=== PATIENT | male | born 1965 | race Caucasian/White ===

== ENCOUNTER 2017-06-17 16:31 | Observation (INO) | payer OTHER ==
[~2017-06-17] VITALS: Ht 165.1 cm; Wt 79.4 kg
[2017-06-17] MEDS ORDERED: SODIUM CHLORIDE 0.9% 1000ML 1,000 ML IV STA (16:59)
[2017-06-17] MEDS ORDERED: HYDROCODONE/APAP 10MG-325MG TAB PO ONE (17:00)
--- NOTE | 2017-06-17 17:59 | Diagnostic Imaging Report ---
Exam: Head CT without contrast History: Weakness, left-sided facial droop. Per Dr. Saba, patient is outside of window for intravenous thrombolytic therapy. Comparison studies: None Technique: Axial images were obtained from the skull base to the vertex. Coronal and sagittal images reconstructed from the axial data. Intravenous contrast: None Findings: Scalp: No abnormalities. Bones: No fractures, blastic or lytic lesions. Brain sulci: Appropriate for age. Ventricles: Normal in size and configuration. No hydrocephalus. Extra-axial spaces: No masses, no fluid collection. Subtle hyperdensity within a right perisylvian arterial branch (series 2, image 11). Parenchyma: No abnormal densities. No masses, acute hemorrhage, acute or chronic vascular insults. Sellar/suprasellar region: No abnormalities. Craniocervical junction: Patent foramen magnum. No Chiari one malformation. Incidental findings: Atherosclerotic calcifications in the carotid siphons and right intradural vertebral artery. IMPRESSION: 1. No mass, acute hemorrhage or acute cortical vascular insults. 2. Subtle hyperdensity within a right perisylvian M2 MCA branch may be artifactual. Moreover cannot exclude acute right M2 MCA thrombus in the context of "left facial droop". Recommend brain MRI and intracranial MRA to further evaluate. Findings recommendations were discussed with Dr. Saba at 5:50 PM on 2016. Signed by: Dr. Darrick Hilton M.D. on 06/17/2017 5:55 PM
--- NOTE | 2017-06-17 18:09 | Diagnostic Imaging Report ---
PROCEDURE: A single AP view of the chest. COMPARISON: None. INDICATIONS: WEAKNESS FINDINGS: Lines/tubes: None. Lungs: The lungs are well inflated. Linear subsegmental atelectasis likely located in the lingula. There is no evidence of consolidation or pulmonary edema. Pleura: There is no pleural effusion or pneumothorax. Heart and mediastinum: The heart and the mediastinum are unremarkable. Bones: No acute bony abnormality. IMPRESSION: 1. No acute cardiopulmonary abnormalities. Jameel Conrad M.D. Dictated by: Jameel Conrad M.D. on 06/17/2017 at 18:17 Electronically approved by: Jameel Conrad M.D. on 06/17/2017 at 18:17
[2017-06-17 18:11] LABS: BILIRUBIN,URINE NEGATIVE (NEGATIVE); CLARITY,URINE CLEAR (CLEAR); COLOR,URINE YELLOW (YELLOW); KETONES,URINE NEGATIVE (NEGATIVE); LEUKOCYTE ESTERASE ,URINE NEGATIVE (NEGATIVE); NITRITE,URINE NEGATIVE (NEGATIVE); PROTEIN,URINE DIPSTICK NEGATIVE (NEGATIVE); URINE UROBILINOGEN 0.2 mg/dL (0.2 - 1)
[2017-06-17] MEDS ORDERED: SODIUM CHLORIDE FLUSH 10 ML SYR INJ PRN (18:15)
[2017-06-17] MEDS ORDERED: ASPIRIN 325 MG TAB PO ONE (18:15)
[2017-06-17 18:32] LABS: BACTERIA,URINE RARE /HPF; RBC,URINE 0-5 /HPF (0-5); WBC,URINE (MAN) 0-5 /HPF (0-5)
[2017-06-17 18:33] LABS: EPITHELIAL CELLS,URINE RARE /LPF; MUCUS,URINE FEW (RARE)
[2017-06-17 19:12] LABS: BASOPHILS # (AUTO) 0.1 (0.0-0.1); BASOPHILS % 0.6 % (0.0-1.0); EOSINOPHILS # (AUTO) 0.2 (0.0-0.4); EOSINOPHILS % 2.1 % (0.0-6.0); HEMATOCRIT 44.3 % (38.2-49.6); HEMOGLOBIN 15.3 g/dL (14.0-18.0); LYMPHOCYTES # (AUTO) 2.6 (1.0-3.2); LYMPHOCYTES % 32.5 % (18.0-39.1); MEAN CORPUSCULAR HEMOGLOBIN 32.7 pg (28-32); MEAN CORPUSCULAR HGB CONC 34.5 g/dL (31-35); MEAN CORPUSCULAR VOLUME 94.7 fL (81-99); MONOCYTES # (AUTO) 0.6 (0.2-0.8); MONOCYTES % 7.9 % (4.4-11.3); NEUTROPHILS # (AUTO) 4.6 (2.1-6.9); NEUTROPHILS % 56.5 % (38.7-80.0); PLATELET COUNT 340 x10e3/uL (140-360); RED BLOOD COUNT 4.68 x10e6/uL (4.3-5.7); RED CELL DISTRIBUTION WIDTH 12.5 % (11.7-14.4)
[2017-06-17 19:22] LABS: INR 0.84; PARTIAL THROMBOPLASTIN TIME 29.9 seconds (23.8-35.5); PROTHROMBIN TIME 11.9 seconds (11.9-14.5)
[2017-06-17 19:29] LABS: ALANINE AMINOTRANSFERASE 20 IU/L (0-55); ALBUMIN 3.7 g/dL (3.5-5.0); ALBUMIN/GLOBULIN RATIO 1.1 (0.8-2.0); ALKALINE PHOSPHATASE 89 IU/L (40-150); BLOOD UREA NITROGEN 16 mg/dL (7-26); BUN/CREATININE RATIO 17 (6-25); CALCIUM 9.1 mg/dL (8.4-10.2); CARBON DIOXIDE 27 mmol/L (22-29); CHLORIDE 104 mmol/L (98-107); CREATINE KINASE 72 IU/L (30-200); CREATININE, SERUM 0.92 mg/dL (0.72-1.25); EST GLOMERULAR FILTRATION RATE > 60 ML/MIN (60-); GLUCOSE 88 mg/dL (74-118); SODIUM 139 mmol/L (136-145)
[2017-06-17 19:35] LABS: TROPONIN I 0.015 ng/mL (0-0.300)
--- NOTE | 2017-06-17 21:36 | Diagnostic Imaging Report ---
History: Weakness and left-sided facial droop. Comparison studies: CT brain from 06/17/2017. Technique: Sagittal T2; axial T1, GRE, T2, DWI, axial and coronal T2 FLAIR. 2-D cervical and 3-D intracranial [id number] MRA's . Images were obtained of the neck without contrast. MIP images of the arteries were isolated into right-left groups. The source images and customer sales representative projections of the MIP images through 180 degrees of rotation were reviewed. MRA images were obtained of the brain without contrast. MIP images of the arteries were isolated into anterior-posterior groups. The source images, reformatted axial and coronal images, and customer sales representative projections of the MIP images through 180 degrees of rotation and tumbling were reviewed. Intravenous contrast: None Findings: Brain: Scalp: No abnormal signal. No masses. Bone marrow: Normal in signal intensity. Brain sulci: Mildly prominent . Ventricles: Normal in size . No hydrocephalus. Parenchyma: Single punctate T2/FLAIR hyperintense focus in right inferior frontal deep white matter may represent small vessel ischemia. No masses, hemorrhage, acute or chronic vascular insults. Suprasellar region: No abnormalities. Craniocervical junction: No abnormalities. The foramen magnum is patent. No Chiari malformations. Vessels: Normal flow-voids in the arteries and sinuses. Incidental finding: Minimal T2 hyperintense mucosa in left anterior ethmoid sinus. Cervical MRA: Suboptimal evaluation due to significant motion artifacts. If carotid bulb stenosis is present, stenosis is measured with respect to the distal extracranial internal carotid artery. Carotid arteries: Patent, no abnormality Vertebral arteries: Patent, no abnormality. No evidence of stenosis or occlusion. Intracranial MRA: Suboptimal evaluation due to technical reasons- the full set of source images in series 6 is not visualized, evaluation is based on post processed images. Internal carotid arteries: Patent and, no abnormality in bilateral A1 and M1 segments. Vertebrobasilar circulation: A focal aneurysmal dilatation in the mid segment of P1 segment approximately measures 1.5 mm, but the neck that approximately measures 0.7 mm. Patent bilateral posterior cerebral arteries, basilar artery and intradural segment of the vertebral arteries. Anatomical variants: Anterior communicating artery: Not visualized Posterior communicating arteries: Not visualized Vertebral arteries:Codominant IMPRESSION: Brain: No acute intracranial abnormality. MRA neck: Suboptimal evaluation due to motion artifacts, despite the limitation no cervical vascular abnormality. 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 Signed by: Dr. Ann Olson M.D. on 06/17/2017 9:32 PM
--- NOTE | 2017-06-17 21:36 | Diagnostic Imaging Report ---
History: Weakness and left-sided facial droop. Comparison studies: CT brain from 06/17/2017. Technique: Sagittal T2; axial T1, GRE, T2, DWI, axial and coronal T2 FLAIR. 2-D cervical and 3-D intracranial [id number] MRA's . Images were obtained of the neck without contrast. MIP images of the arteries were isolated into right-left groups. The source images and advertising account representative projections of the MIP images through 180 degrees of rotation were reviewed. MRA images were obtained of the brain without contrast. MIP images of the arteries were isolated into anterior-posterior groups. The source images, reformatted axial and coronal images, and advertising account representative projections of the MIP images through 180 degrees of rotation and tumbling were reviewed. Intravenous contrast: None Findings: Brain: Scalp: No abnormal signal. No masses. Bone marrow: Normal in signal intensity. Brain sulci: Mildly prominent . Ventricles: Normal in size . No hydrocephalus. Parenchyma: Single punctate T2/FLAIR hyperintense focus in right inferior frontal deep white matter may represent small vessel ischemia. No masses, hemorrhage, acute or chronic vascular insults. Suprasellar region: No abnormalities. Craniocervical junction: No abnormalities. The foramen magnum is patent. No Chiari malformations. Vessels: Normal flow-voids in the arteries and sinuses. Incidental finding: Minimal T2 hyperintense mucosa in left anterior ethmoid sinus. Cervical MRA: Suboptimal evaluation due to significant motion artifacts. If carotid bulb stenosis is present, stenosis is measured with respect to the distal extracranial internal carotid artery. Carotid arteries: Patent, no abnormality Vertebral arteries: Patent, no abnormality. No evidence of stenosis or occlusion. Intracranial MRA: Suboptimal evaluation due to technical reasons- the full set of source images in series 6 is not visualized, evaluation is based on post processed images. Internal carotid arteries: Patent and, no abnormality in bilateral A1 and M1 segments. Vertebrobasilar circulation: A focal aneurysmal dilatation in the mid segment of P1 segment approximately measures 1.5 mm, but the neck that approximately measures 0.7 mm. Patent bilateral posterior cerebral arteries, basilar artery and intradural segment of the vertebral arteries. Anatomical variants: Anterior communicating artery: Not visualized Posterior communicating arteries: Not visualized Vertebral arteries:Codominant IMPRESSION: Brain: No acute intracranial abnormality. MRA neck: Suboptimal evaluation due to motion artifacts, despite the limitation no cervical vascular abnormality. 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 Signed by: Dr. Ann Olson M.D. on 06/17/2017 9:32 PM
--- NOTE | 2017-06-17 21:36 | Diagnostic Imaging Report ---
History: Weakness and left-sided facial droop. Comparison studies: CT brain from 06/17/2017. Technique: Sagittal T2; axial T1, GRE, T2, DWI, axial and coronal T2 FLAIR. 2-D cervical and 3-D intracranial [id number] MRA's . Images were obtained of the neck without contrast. MIP images of the arteries were isolated into right-left groups. The source images and tax representative projections of the MIP images through 180 degrees of rotation were reviewed. MRA images were obtained of the brain without contrast. MIP images of the arteries were isolated into anterior-posterior groups. The source images, reformatted axial and coronal images, and tax representative projections of the MIP images through 180 degrees of rotation and tumbling were reviewed. Intravenous contrast: None Findings: Brain: Scalp: No abnormal signal. No masses. Bone marrow: Normal in signal intensity. Brain sulci: Mildly prominent . Ventricles: Normal in size . No hydrocephalus. Parenchyma: Single punctate T2/FLAIR hyperintense focus in right inferior frontal deep white matter may represent small vessel ischemia. No masses, hemorrhage, acute or chronic vascular insults. Suprasellar region: No abnormalities. Craniocervical junction: No abnormalities. The foramen magnum is patent. No Chiari malformations. Vessels: Normal flow-voids in the arteries and sinuses. Incidental finding: Minimal T2 hyperintense mucosa in left anterior ethmoid sinus. Cervical MRA: Suboptimal evaluation due to significant motion artifacts. If carotid bulb stenosis is present, stenosis is measured with respect to the distal extracranial internal carotid artery. Carotid arteries: Patent, no abnormality Vertebral arteries: Patent, no abnormality. No evidence of stenosis or occlusion. Intracranial MRA: Suboptimal evaluation due to technical reasons- the full set of source images in series 6 is not visualized, evaluation is based on post processed images. Internal carotid arteries: Patent and, no abnormality in bilateral A1 and M1 segments. Vertebrobasilar circulation: A focal aneurysmal dilatation in the mid segment of P1 segment approximately measures 1.5 mm, but the neck that approximately measures 0.7 mm. Patent bilateral posterior cerebral arteries, basilar artery and intradural segment of the vertebral arteries. Anatomical variants: Anterior communicating artery: Not visualized Posterior communicating arteries: Not visualized Vertebral arteries:Codominant IMPRESSION: Brain: No acute intracranial abnormality. MRA neck: Suboptimal evaluation due to motion artifacts, despite the limitation no cervical vascular abnormality. 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 Signed by: Dr. Ann Olson M.D. on 06/17/2017 9:32 PM
[2017-06-18 02:03] VITALS: BP 163/79
[2017-06-18 04:25] VITALS: BP 163/79
[2017-06-18 06:26] VITALS: BP 126/68
[2017-06-18 08:36] VITALS: BP 147/72
[2017-06-18] MEDS ORDERED: ASPIRIN 325 MG TAB EC PO SCH (09:00)
[2017-06-18] MEDS ORDERED: ATENOLOL 50 MG TAB PO SCH (09:00)
[2017-06-18 12:00] VITALS: BP 157/73
[2017-06-18 16:16] VITALS: BP 146/75
--- NOTE | 2017-06-19 03:38 | Consultation ---
DATE OF CONSULTATION: June 18, 2017 NEUROLOGICAL CONSULTATION TIME: 4 p.m. REASON FOR CONSULTATION: Numbness and paresthesia and drooping of the left side of the face. This is a 52-year-old male who was admitted with numbness of the left side of the face, numbness of the left forehead. He noticed that he had a little trouble with his speech and drooling of the left side of the mouth, but there was no headaches. No dizziness. No swallowing difficulty. No focal paresthesia or focal weakness. No previous problems like this in the past. PAST HISTORY: History of hypertension. No diabetes. No heart condition. He has a history of kidney stone. SOCIAL HISTORY: Not a heavy drinker. He smokes a pack of cigarettes a day and 10 joints a day. FAMILY HISTORY: Noncontributory. REVIEW OF SYSTEMS: All 12-steps negative, except what is described above. PHYSICAL EXAMINATION VITALS: Blood pressure was 146/75, pulse 60, temperature 97.7. LUNGS: Clear to auscultation. HEART: Regular sinus rhythm. No murmurs. ABDOMEN: Soft and nontender. No organomegaly. EXTREMITIES: Lower extremities with no edema. No clubbing. No cyanosis. No back or neck pain. NEURO: Mental status is normal. He is oriented times 3. Pupils are both equal and reactive. Extraocular movements were full. Visual field was normal. There is facial asymmetry with flattening of the nasal labial on the left side and drooling from the mouth to the right side when smiling. He has weakness closing the left eye. No weakness in either upper or lower extremities. Plantar stimulation is down bilaterally. Coordination: Lerrlj-yd-ddox normal. Romberg test negative. Gait was normal. CT scan of the brain was negative. MRI of the brain shows no acute pathology. No hemorrhagic lesions. No mass. No acute ischemic changes. There is 1 small chronic T2 lesion, which could be small vessel disease in the past. MRI of the brain was negative. MRI of the neck negative. IMPRESSION 1. Left Rodriguez's palsy. 2. Hypertension. RECOMMENDATIONS 1. Patient was explained about Rodriguez's palsy. Recommended to wear eye patch mostly at night to prevent injury. 2. Patient was advised to avoid getting out of buildings without glasses to prevent any infection of the eye because of difficulty closing the left eye. 3. Patient was explained about facial muscle exercises at least twice a day. 4. Follow with me in 2 weeks. The patient had questions and answered questions. Will follow in 2 weeks. Job#: [id number] [place]
== END 2017-06-18 16:50 | disposition home or self-care (01) ==
LOC: ER 16:31 → ERHOLD 19:14 → IMCU 06-18 00:02
PROVIDERS: ADMIT Family Medicine; ATTEND Family Medicine
DX: G51.0 Bell's palsy (principal); I10 Essential (primary) hypertension; I67.1 Cerebral aneurysm, nonruptured
CPT/HCPCS: 36415; 70450; 70544; 70547; 70551; 71010; 80053; 81001; 82550; 82553; 84484; 85025; 85610; 85730; 87086; 93005; 93306; 99284; G0378 ×2